=== PATIENT | female | born 1965 | race Caucasian/White ===

== ENCOUNTER 2020-03-25 08:48 | Emergency (ER) | payer MEDICAID ==
[~2020-03-25] VITALS: Ht 165.1 cm; Wt 50.0 kg
[2020-03-25 10:00] VITALS: BP 153/98
== END 2020-03-25 10:18 | disposition home or self-care (01) ==
LOC: EMS 08:49
DX: F41.9 Anxiety disorder, unspecified (principal); Z76.0 Encounter for issue of repeat prescription